=== PATIENT | male | born 1965 | race Two or more races ===

== ENCOUNTER 2019-12-16 13:51 | Emergency (ER) | payer OTHER ==
[2019-12-16] MEDS ORDERED: ONDANSETRON ODT 4 MG PO ONE (14:30)
[2019-12-16 14:51] LABS: BASOPHILS # (AUTO) 0.01 x10^3/uL (0-0.1); BASOPHILS % (AUTO) 0 % (0-1); EOSINOPHILS % (AUTO) 0 % (1-7); LYMPHOCYTES # (AUTO) 0.54 x10^3/uL (1-3.4); LYMPHOCYTES % (AUTO) 4 % (22-44); MD NO; MEAN CORPUSCULAR HEMOGLOBIN 28.2 pg (27.5-34.5); MEAN CORPUSCULAR HGB CONC 32.7 g/dL (33.2-36.2); MEAN CORPUSCULAR VOLUME 86.2 fL (81-97); MEAN PLATELET VOLUME 9.7 fL (7.4-10.4); MONOCYTES # (AUTO) 0.26 x10^3/uL (0.2-0.8); MONOCYTES % (AUTO) 2 % (2-9); NEUTROPHILS # (AUTO) 13.35 x10^3/uL (1.8-6.8); NEUTROPHILS % (AUTO) 94 % (42-75); PLATELET COUNT 213 x10^3/uL (130-400); RED CELL DISTRIBUTION WIDTH 13.5 % (9.4-14.8)
[2019-12-16 15:00] LABS: ALANINE AMINOTRANSFERASE 55 U/L (12-78); ALBUMIN 4.1 g/dL (3.4-5.0); ANION GAP 7 mmol/L (5-15); CALCIUM 8.8 mg/dL (8.5-10.1); CHLORIDE 106 mmol/L (98-107); CREATININE 0.89 mg/dL (0.7-1.3)
[2019-12-16 15:03] LABS: ALKALINE PHOSPHATASE 106 U/L (45-117); BILIRUBIN,TOTAL 0.4 mg/dL (0.2-1.0)
--- NOTE | 2019-12-16 15:32 | NUR ---
MANAGER INFUSION: PT AMBULATORY WITH STEADY GAIT TO ROOM AT THIS TIME .JENS
--- NOTE | 2019-12-16 15:35 | NUR ---
FIRST CONTACT WITH PT. PT C/O N/V ALL DAY. PT DENIES ANY OTHER SYMPTOMS. PT'S AOX4. RESPS EVEN AND UNLABORED. BP/SPO2 MONITORS IN PLACE. CALL LIGHT WITHIN REACH.
[2019-12-16] MEDS ORDERED: ONDANSETRON ODT 4 MG ONE (15:36)
--- NOTE | 2019-12-16 15:44 | NUR ---
PT MEDICATED PER EMAR. PT TOLERATED WELL.
[2019-12-16] MEDS ORDERED: SODIUM CHLORIDE 0.9% 1,000 ML IV ONE (15:48)
[2019-12-16] MEDS ORDERED: SODIUM CHLORIDE FLUSH 10ML SYR IVF ONE (16:00)
[2019-12-16] MEDS ORDERED: MECLIZINE CHEWABLE 25 MG TAB PO ONE (16:00)
[2019-12-16] MEDS ORDERED: SODIUM CHLORIDE 0.9% 1,000ML IVBOLUS ONE (16:00)
[2019-12-16] MEDS ORDERED: MECLIZINE CHEWABLE 25 MG TAB ONE (16:04)
--- NOTE | 2019-12-16 16:07 | NUR ---
EKG DONE AT BEDSIDE BY EMT.
--- NOTE | 2019-12-16 16:15 | NUR ---
PT MEDICATED PER EMAR. PT TOLERATED WELL. NS INFUSING AT THIS TIME.
[2019-12-16 16:16] VITALS: BP 129/72
[2019-12-16] MEDS ORDERED: ASPIRIN 81 MG TABLET CHEW ONE (16:23)
--- NOTE | 2019-12-16 16:26 | NUR ---
PT TO CT NOW.
--- NOTE | 2019-12-16 16:26 | NUR ---
PT MEDICATED PER EMAR. PT TOLERATED WELL.
[2019-12-16] MEDS ORDERED: ASPIRIN 81 MG TABLET CHEW PO ONE (16:30)
[2019-12-16 16:45] LABS: TROPONIN I < 0.015 ng/mL (0.000-0.045)
--- NOTE | 2019-12-16 16:45 | NUR ---
PT BACK TO ROOM FROM CT AT THIS TIME.
--- NOTE | 2019-12-16 17:42 | NUR ---
TASK RN. Patient/Caregiver given discharge instructions and they have confirmed that they understand the instructions. Patient ambulatory with steady gait. PT LEFT WITH ALL PERSONAL BELONGINGS.
== END 2019-12-16 17:43 | disposition home or self-care (01) ==
LOC: ED 17:25
DX: R11.2 Nausea with vomiting, unspecified (principal); R42 Dizziness and giddiness
CPT/HCPCS: 36415; 70450; 74021; 80053; 83690; 84484; 85025; 93005; 96360; 96361; 99284; J7030; Q0162

== ENCOUNTER 2020-07-27 19:27 | Emergency (ER) | payer OTHER ==
[~2020-07-27] VITALS: Ht 170.2 cm; Wt 75.0 kg
[2020-07-27] MEDS ORDERED: MORPHINE SULFATE 4 MG/ML, 1ML ONE (20:20)
[2020-07-27] MEDS ORDERED: ONDANSETRON 2MG/ML, 2ML ONE (20:20)
[2020-07-27] MEDS ORDERED: MAALOX/HYOSCYAMINE/LIDOCAINE 45 ML BTL ONE (20:20)
[2020-07-27] MEDS ORDERED: FAMOTIDINE 20 MG/2 ML ONE (20:21)
[2020-07-27 20:29] LABS: MEAN CORPUSCULAR HEMOGLOBIN 27.9 pg (27.5-34.5); MEAN CORPUSCULAR HGB CONC 32.3 g/dL (33.2-36.2); MEAN CORPUSCULAR VOLUME 86.3 fL (81-97); MEAN PLATELET VOLUME 9.9 fL (7.4-10.4); PLATELET COUNT 179 x10^3/uL (130-400); RED BLOOD COUNT 6.06 x10^6/uL (4.38-5.82); RED CELL DISTRIBUTION WIDTH 13.7 % (9.4-14.8)
[2020-07-27] MEDS ORDERED: MAALOX/HYOSCYAMINE/LIDOCAINE 45 ML BTL PO ONE (20:30)
[2020-07-27] MEDS ORDERED: SODIUM CHLORIDE FLUSH 10ML SYR IVF ONE (20:30)
[2020-07-27] MEDS ORDERED: FAMOTIDINE 20 MG/2 ML IVPush ONE (20:30)
[2020-07-27] MEDS ORDERED: ONDANSETRON 2MG/ML, 2ML IVPush ONE (20:30)
[2020-07-27] MEDS ORDERED: MORPHINE SULFATE 4 MG/ML, 1ML IVPush PRN (20:30)
[2020-07-27] MEDS ORDERED: SODIUM CHLORIDE 0.9% 1,000ML IVBOLUS ONE (20:30)
[2020-07-27 20:40] LABS: ALBUMIN 4.6 g/dL (3.4-5.0); ANION GAP 8 mmol/L (5-15); CALCIUM 9.3 mg/dL (8.5-10.1); CHLORIDE 108 mmol/L (98-107)
--- NOTE | 2020-07-27 20:40 | NUR ---
Pt arrives to ed with abd pain s/p possibly eating some bad food. Pt reports that he has thrown up over 20 times and is having alot of bm. Pt reports he has no medical problems but this gi distress has gotten the best of him. Pt appears dehydrated has dry skin and mucus membranes are dry. Pt connected to vitals monitor and call light in reach. Awaiting further orders. Call light in reach. Pt medicated per emar.
[2020-07-27 20:41] LABS: MD YES
[2020-07-27 20:43] LABS: ALANINE AMINOTRANSFERASE 56 U/L (12-78); ALKALINE PHOSPHATASE 112 U/L (45-117); BILIRUBIN,TOTAL 0.5 mg/dL (0.2-1.0); CREATININE 1.27 mg/dL (0.7-1.3); TOTAL PROTEIN 8.7 g/dL (6.4-8.2)
[2020-07-27 20:44] LABS: <PLATELET ESTIMATE> ADEQUATE; <PLT MORPHOLOGY> NORMAL PLT MORPH; <RBC MORPHOLOGY> NORMAL; BAND#(MANUAL) 4.03 x10^3/uL; BANDS%(MANUAL) 25 % (0-7); LYMPH#(MANUAL) 0.16 x10^3/uL (1-3.4); LYMPHS% (MANUAL) 1 % (22-44); METAMYELOCYTES# (MANUAL) 0.16 x10^3/uL (0-0); METAMYELOCYTES% (MANUAL) 1 % (0-1); MONOS#(MANUAL) 0.64 x10^3/uL (0.3-2.7); MONOS% (MANUAL) 4 % (2-9); SEG#(MANUAL) 11.11 x10^3/uL (1.8-6.8); SEGS% (MANUAL) 69 % (42-75)
--- NOTE | 2020-07-27 20:58 | NUR ---
Pt has elevated wbc and bands, no blood cultures at this time and monotherapy abx.
[2020-07-27] MEDS ORDERED: CEFTRIAXONE PMX 1GM/50ML 50 ML IV ONE (21:00)
[2020-07-27] MEDS ORDERED: CEFTRIAXONE PMX 1GM/50ML 50 ML ONE (21:26)
--- NOTE | 2020-07-27 21:46 | NUR ---
Pt has abx infusing and has 1 liter of fluid remaining.
--- NOTE | 2020-07-27 23:10 | NUR ---
Patient/Caregiver given discharge instructions and they have confirmed that they understand the instructions. Patient ambulatory with steady gait.
[2020-07-27 23:12] VITALS: BP 107/62
== END 2020-07-27 23:30 | disposition home or self-care (01) ==
LOC: ED 21:52
DX: K52.9 Noninfective gastroenteritis and colitis, unspecified (principal); E86.9 Volume depletion, unspecified; R00.0 Tachycardia, unspecified
CPT/HCPCS: 36415; 80053; 83690; 85025; 96361; 96365; 96375; 99285; J0696; J2270; J2405; J3490; J7030